=== PATIENT | female | born 1955 | race Caucasian/White ===

== ENCOUNTER 2018-10-13 18:25 | Emergency (ER) | payer OTHER ==
[~2018-10-13] VITALS: Ht 162.6 cm; Wt 77.1 kg
[2018-10-13] MEDS ORDERED: OMEPRAZOLE20 MG PO (19:09)
[2018-10-13] MEDS ORDERED: LOSARTAN-HCTZ1 EAC1 PO (19:10)
[2018-10-13] MEDS ORDERED: PAMELOR50 M1 PO (19:10)
[2018-10-13] MEDS ORDERED: METFORMIN HCL1000 M1 PO (19:10)
[2018-10-13] MEDS ORDERED: SIMVASTATIN10 MG PO (19:11)
[2018-10-13] MEDS ORDERED: CATAPRES0.1 MG PO (19:11)
== END 2018-10-13 21:18 | disposition home or self-care (01) ==
LOC: ER 18:25
DX: J09.X2 Influenza due to identified novel influenza A virus with other respiratory manifestations (principal); G43.809 Other migraine, not intractable, without status migrainosus; R50.9 Fever, unspecified

== ENCOUNTER 2018-10-18 12:45 | Emergency (ER) | payer OTHER ==
[~2018-10-18] VITALS: Ht 162.6 cm; Wt 74.8 kg
[~2018-10-18 12:45] MED LIST: CATAPRES0.1 MG PO; LOSARTAN-HCTZ1 EAC1 PO; METFORMIN HCL1000 M1 PO; OMEPRAZOLE20 MG PO; PAMELOR50 M1 PO; SIMVASTATIN10 MG PO
== END 2018-10-18 20:45 | disposition home or self-care (01) ==
LOC: ER 12:45
DX: I16.0 Hypertensive urgency (principal); I10 Essential (primary) hypertension; K29.60 Other gastritis without bleeding; B34.9 Viral infection, unspecified